=== PATIENT | male | born 1950 | race Caucasian/White ===

== ENCOUNTER 2024-12-17 18:00 | Emergency (ER) | payer MEDICARE ==
[~2024-12-17] VITALS: Ht 165.1 cm; Wt 77.2 kg
[2024-12-17 18:14] VITALS: TEMP 97.7
[2024-12-17] MEDS: CloNIDine HCL 0.1 MG TABLET PO ONE (21:33)
[2024-12-17] MEDS: PERTUSS(ACELL),DIPH,TET/PF 0.5 ML SYRINGE [ADULT] IM. ONE (21:35)
[2024-12-17] MEDS: LIDOCAINE 1% 10 ML VIAL ID ONE (21:37)
[2024-12-17] MEDS: CEPHALEXIN MONOHYDRATE 500 MG CAPSULE PO ONE (21:37)
[2024-12-17] MEDS ORDERED: CEPH-558 PO (22:09)
[2024-12-17] MEDS ORDERED: BACI28.410 TP (22:09)
[2024-12-17 22:36] VITALS: BP 159/86; PULSE 58; RESP 15; O2SAT 95
[2024-12-17] MEDS: BACITRACIN 0.9 GM PACKET OINTMENT TP ONE (22:40)
== END 2024-12-17 22:45 | disposition home or self-care (01) ==
LOC: EMS 18:03
DX: S81.811A Laceration without foreign body, right lower leg, initial encounter (principal); I10 Essential (primary) hypertension; W22.03XA Walked into furniture, initial encounter; Y93.89 Activity, other specified; Y92.89 Other specified places as the place of occurrence of the external cause; Y99.8 Other external cause status
CPT/HCPCS: 99283; 90715; 90471; 12002; J3490